=== PATIENT | male | born 1985 | race Caucasian/White ===

== ENCOUNTER 2022-08-11 19:51 | Inpatient (IN) | payer OTHER ==
[2022-08-11] MEDS ORDERED: LORazepam 2 MG/ML INJ IV STA ×3 (20:35→23:32)
[2022-08-11] MEDS ORDERED: SODIUM CHLORIDE 0.9% 1,000 ML with THIAMINE 100 MG, FOLIC ACID 1 MG IV ONE ×3 (20:39)
[2022-08-11] MEDS ORDERED: THIAMINE 100 MG/ML 2 ML VIAL IVP STA (20:39)
--- NOTE | 2022-08-11 20:42 | ED ---
Alcohol HPI - General Chief Complaint: Alcohol Stated Complaint: Mental health Time Seen by Provider: 08/11/22 20:20 Source: EMS, RN notes reviewed Mode of arrival: EMS - History of Present Illness Initial Comments: This is a 37-year-old male sent over from [facility]. Patient states he's been there 5 days for alcohol abuse. Patient states his last drink was 6 days ago. Apparently the patient now has started hallucinating and is very anxious. Patient believes that he brought to kill him and have already killed his . Difficult to obtain any further information from the patient due to his current state of anxiety. MD Complaint: alcohol withdrawal Time Since Last Drink: 5 (Her patient who is a poor historian) -: days(s) Previous Visits for Alcohol Intoxication?: No Recent Trauma: No Associated Symptoms: diaphoresis Treatments Prior to Arrival: none Chronic Alcohol Use: Yes - Related Data Home Medications Medication Instructions Recorded Confirmed Acetaminophen [Tylenol 8 Hour] 650 mg PO Q4H PRN 08/11/22 08/11/22 Calcium/Magnesium/Zinc/Cierra D 1 tab PO TID PRN 08/11/22 08/11/22 Chlorpheniramine Maleate 4 mg PO Q4H PRN 08/11/22 08/11/22 [Chlor-Trimeton] Docusate [Colace] 100 mg PO BID PRN 08/11/22 08/11/22 Hyoscyamine Sulfate [Levsin] 0.125 mg PO QID PRN 08/11/22 08/11/22 Ibuprofen [Motrin Ib] 600 mg PO Q6H PRN 08/11/22 08/11/22 LORazepam [Ativan] 1 - 2 mg PO Q4H 08/11/22 08/11/22 Loperamide HCl [Imodium A-D] 4 mg PO QID PRN 08/11/22 08/11/22 Mag Hydrox/Aluminum Hyd/Simeth 30 ml PO Q4H PRN 08/11/22 08/11/22 [Mylanta Maximum Strength Liq] Magnesium Hydroxide [Milk of 2,400 mg PO BID PRN 08/11/22 08/11/22 Magnesia] Omeprazole [PriLOSEC] 20 mg PO DAILY 08/11/22 08/11/22 Thiamine [Vitamin B-1] 100 mg PO DAILY 08/11/22 08/11/22 cloNIDine HCL [Catapres] 0.1 - 0.3 mg PO Q4H PRN 08/11/22 08/11/22 guaiFENesin [guaiFENesin Oral 200 mg PO Q4H PRN 08/11/22 08/11/22 Solution] ondansetron HCL [Ondansetron HCl] 8 mg PO Q6H PRN 08/11/22 08/11/22 traZODone HCL [Desyrel] 50 - 150 mg PO HS PRN 08/11/22 08/11/22 Allergies Allergy/AdvReac Type Severity Reaction Status Date / Time No Known Allergies Allergy Verified 08/11/22 20:03 Review of Systems ROS Statement: Those systems with pertinent positive or pertinent negative responses have been documented in the HPI. ROS Other: All systems not noted in ROS Statement are negative. Limitations: ROS unobtainable due to patients medical condition (Reliable review of systems is not available due to the patient's presenting) Past Medical History Past Medical History: Unable to Obtain, Sleep Apnea/CPAP/BIPAP History of Any Multi-Drug Resistant Organisms: None Reported Past Surgical History: Unable to Obtain Past Psychological History: No Psychological Hx Reported Past Alcohol Use History: Abuse, Daily General Exam - General Exam Comments Initial Comments: Agitated patient upon arrival. Nerves II through XII appear to be grossly intact. Patient diaphoretic, flight of ideas, pressured speech, notable tremor General appearance: alert, in no apparent distress, anxious, in distress Head exam: Present: atraumatic, normocephalic, normal inspection Eye exam: Present: normal appearance, PERRL, EOMI, nystagmus, other (Mydriatic). Absent: scleral icterus, conjunctival injection, periorbital swelling Pupils: Present: mydriatic ENT exam: Present: normal exam, normal oropharynx, mucous membranes dry, mucous membranes moist, normal external ear exam Neck exam: Present: normal inspection, full ROM. Absent: tenderness, meningismus, lymphadenopathy Respiratory exam: Present: normal lung sounds bilaterally. Absent: respiratory distress, wheezes, rales, rhonchi, stridor Cardiovascular Exam: Present: normal rhythm, tachycardia, normal heart sounds. Absent: systolic murmur, diastolic murmur, rubs, gallop, clicks GI/Abdominal exam: Present: soft, normal bowel sounds. Absent: distended, tenderness, guarding, rebound, rigid Extremities exam: Present: normal inspection, full ROM, normal capillary refill. Absent: tenderness, pedal edema, joint swelling, calf tenderness Back exam: Present: normal inspection Neurological exam: Present: alert, CN II-XII intact, other (Diffuse tremor noted) Psychiatric exam: Present: agitated, anxious Skin exam: Present: warm, intact, normal color, diaphoretic. Absent: dry, rash, erythema, urticaria, vesicles, petechiae, pallor, abrasion Course Vital Signs 08/11/22 08/11/22 08/11/22 20:00 22:00 23:00 Temperature 97.9 F Pulse Rate 63 108 H 109 H Respiratory 18 18 18 Rate Blood Pressure 179/122 148/98 145/98 O2 Sat by Pulse 96 99 95 Oximetry - Reevaluation(s) Reevaluation #1: 08/11/22 22:14 Patient came in and was having bouts of acute psychosis, suspect withdrawal syndrome. Patient required initially mechanical restraints and then was given Haldol 5 mg IM, lorazepam 2 mg IM, and diphenhydramine 50 mg IM. At 2214 patient was again agitated and required more medications. Repeat dose of lorazepam given. Reevaluation #2: 08/11/22 23:24 Patient reevaluated, appears to be neurologically intact. Patient still having some agitation but is somewhat more sedate. Phenobarbital infusion in process. - Consultations Consultation #1: Case discussed with the income tax investigator, Dr. Lee at 10:35 PM who except addition for the ICU. Will call the hospitalist physician. Dr. Lee agrees with the choice of phenobarbital for sedation Consultation #2: Case discussed in detail with the hospitalist physician Dr. Mejia who accepts the patient for admission. Medical Decision Making - Medical Decision Making 35 points Patients with scores ?20 frequently require medication for withdrawal, and may also require admission to the ICU for observation for seizures or development of delirium tremens, and more frequent medication dosing. Was pt. sent in by a medical professional or institution? @ -Sent by [facility] where the patient has been for 5 days Did you speak to anyone other than the patient for history? @ -EMS Did you review nursing and triage notes? @ -Concur, clinical situation consistent Were old charts reviewed? @ -Not available Differential Diagnosis? @ -To psychosis, metabolic encephalopathy, electrolyte disturbance, alcohol withdrawal, illicit substance intoxication. This is not an exhaustive list EKG interpreted by me (3pts min.)? @ -C EKG interpretation X-rays interpreted by me (1pt min.)? @ -[none] CT interpreted by me (1pt min.)? @ -[none] U/S interpreted by me (1pt. min.)? @ -[none] What testing was considered but not performed? (CT, X-rays, U/S, labs)? Why? @I did consider a computed tomography scan of the head as well as a chest x-ray. However patient appeared to be neurologically intact with no focal deficits. This was deferred pending for further treatment and evaluation. Chest x-ray deferred due to patient's agitation and presentation. We'll consider further. What meds were considered but not given? Why? @ -Other neuroleptic medication such as Geodon and Abilify were considered and held in favor of Haldol. Did you discuss the management of the patient with other professionals? @ -[professionals i.e. Dr, PA, SALES ESTIMATOR, Lab, RT, Psych Nurse, Race Starter, Printer Slotter Operator, Teacher, Optical Engineering Technician, insurance case manager? Give summary] Did you reconcile home meds? @ -[none] Was smoking cessation discussed for >3mins.? @ -[none] Was critical care preformed (if so, how long)? @ -30 minutes for acute psychotic/delusional presentation possible withdrawal syndrome. ICU admission Were there social determinants of health that impacted care today? How? (Homelessness, low income, unemployed, alcoholism, drug addiction, transportation, low edu. Level, literacy, decrease access to med. care, longterm, rehab)? @ -Patient had [facility] and will require further rehabilitation treatment after admission. Was there de-escalation of care discussed even if they declined? (Discuss DNR or withdrawal of care, Hospice)? @ -[Discuss DNR or withdrawal of care, Hospice?] What co-morbidities impacted this encounter? (DM, HTN, Smoking, COPD, CAD, Cancer, CVA, Hep., AIDS, mental health diagnosis, sleep apnea, morbid obesity)? @ -Hypertensive urgency upon presentation Was patient admitted / discharged? @ -Required both mechanical and chemical restraints in the emergency department. Undiagnosed new problem with uncertain prognosis? @ -Yes, probable withdrawal syndrome Drug Therapy requiring intensive monitoring for toxicity (Heparin, Nitro, Insulin, Cardizem)? @ -Lorazepam Were any procedures done? @ -[none] Diagnosis/symptom? @ -Acute withdrawal syndrome with delirium Acute, or Chronic, or Acute on Chronic? @ -Acute Uncomplicated (without systemic symptoms) or Complicated (systemic symptoms)? @ -Complicated Side effects of treatment? @ -Patient appears to be having a discordant reaction to lorazepam Exacerbation, Progression, or Severe Exacerbation] @ -[no] Poses a threat to life or bodily function? @ -Possible - Lab Data Result diagrams: 08/11/22 21:55 08/11/22 21:55 Lab Results 08/11/22 08/11/22 08/11/22 Range/Units 21:55 21:55 21:55 WBC 6.7 (3.8-10.6) k/uL RBC 4.12 L (4.30-5.90) m/uL Hgb 13.0 (13.0-17.5) gm/dL Hct 38.3 L (39.0-53.0) % MCV 93.0 (80.0-100.0) fL MCH 31.7 (25.0-35.0) pg MCHC 34.0 (31.0-37.0) g/dL RDW 12.9 (11.5-15.5) % Plt Count 151 (150-450) k/uL MPV 8.3 Neutrophils % 81 % Lymphocytes % 9 % Monocytes % 6 % Eosinophils % 1 % Basophils % 1 % Neutrophils # 5.5 (1.3-7.7) k/uL Lymphocytes # 0.6 L (1.0-4.8) k/uL Monocytes # 0.4 (0-1.0) k/uL Eosinophils # 0.0 (0-0.7) k/uL Basophils # 0.1 (0-0.2) k/uL PT 10.9 (9.0-12.0) sec INR 1.0 (<1.2) Sodium 137 (137-145) mmol/L Potassium 4.2 (3.5-5.1) mmol/L Chloride 101 (98-107) mmol/L Carbon Dioxide 23 (22-30) mmol/L Anion Gap 13 mmol/L BUN 10 (9-20) mg/dL Creatinine 0.94 (0.66-1.25) mg/dL Est GFR (CKD-EPI)AfAm >90 (>60 ml/min/1.73 sqM) Est GFR (CKD-EPI)NonAf >90 (>60 ml/min/1.73 sqM) Glucose 164 H (74-99) mg/dL Calcium 9.9 (8.4-10.2) mg/dL Phosphorus 4.1 (2.5-4.5) mg/dL Magnesium 1.7 (1.6-2.3) mg/dL Total Bilirubin 0.8 (0.2-1.3) mg/dL AST 113 H (17-59) U/L ALT 101 H (4-49) U/L Alkaline Phosphatase 67 (38-126) U/L Ammonia (<30) umol/L Troponin I (0.000-0.034) ng/mL Total Protein 7.9 (6.3-8.2) g/dL Albumin 4.8 (3.5-5.0) g/dL Lipase 150 (23-300) U/L Serum Alcohol <10 mg/dL 08/11/22 08/11/22 Range/Units 21:55 21:55 WBC (3.8-10.6) k/uL RBC (4.30-5.90) m/uL Hgb (13.0-17.5) gm/dL Hct (39.0-53.0) % MCV (80.0-100.0) fL MCH (25.0-35.0) pg MCHC (31.0-37.0) g/dL RDW (11.5-15.5) % Plt Count (150-450) k/uL MPV Neutrophils % % Lymphocytes % % Monocytes % % Eosinophils % % Basophils % % Neutrophils # (1.3-7.7) k/uL Lymphocytes # (1.0-4.8) k/uL Monocytes # (0-1.0) k/uL Eosinophils # (0-0.7) k/uL Basophils # (0-0.2) k/uL PT (9.0-12.0) sec INR (<1.2) Sodium (137-145) mmol/L Potassium (3.5-5.1) mmol/L Chloride (98-107) mmol/L Carbon Dioxide (22-30) mmol/L Anion Gap mmol/L BUN (9-20) mg/dL Creatinine (0.66-1.25) mg/dL Est GFR (CKD-EPI)AfAm (>60 ml/min/1.73 sqM) Est GFR (CKD-EPI)NonAf (>60 ml/min/1.73 sqM) Glucose (74-99) mg/dL Calcium (8.4-10.2) mg/dL Phosphorus (2.5-4.5) mg/dL Magnesium (1.6-2.3) mg/dL Total Bilirubin (0.2-1.3) mg/dL AST (17-59) U/L ALT (4-49) U/L Alkaline Phosphatase (38-126) U/L Ammonia 21 (<30) umol/L Troponin I <0.012 (0.000-0.034) ng/mL Total Protein (6.3-8.2) g/dL Albumin (3.5-5.0) g/dL Lipase (23-300) U/L Serum Alcohol mg/dL - EKG Data -: EKG Interpreted by Me EKG Comments: EKG independently interpreted by me at 2155 reveals sinus rhythm with a rate of 93. Normal intervals. Normal axis. No acute ST or T-wave changes baseline artifact noted. No comparison study When compared to previous EKG there are: no significant change Critical Care Time Critical Care Time: Yes Total Critical Care Time: 30 Critical Care Time: ICU admission, agitation, acute withdrawal syndrome. Multiple re-evaluations and interventions Disposition Clinical Impression: Alcohol withdrawal delirium, acute, hyperactive, Acute psychosis, Hypertensive urgency Disposition: ADMITTED IP TO THIS HOSP Is patient prescribed a controlled substance at d/c from ED?: No Referrals: Nonstaff,Physician [Primary Care Provider] - 1-2 days Time of Disposition: 23:03 - Out of Hospital Transfer - Req. Specs Out of Hospital Transfer - Requested Specifics: Medical ICU (Case discussed with Dr. Lee)
[2022-08-11] MEDS ORDERED: diphenhydrAMINE 50 MG/ML 1 ML VIAL IM STA (20:49)
[2022-08-11] MEDS ORDERED: HALOPERIDOL LACTATE 5 MG/ML 1 ML VIAL IM ONE (20:50)
[2022-08-11] MEDS ORDERED: LORazepam 2 MG/ML INJ IM STA (20:51)
[2022-08-11 22:15] LABS: Basophils # (A) 0.1 k/uL (0-0.2); Basophils % (A) 1 %; Eosinophils % (A) 1 %; HCT 38.3 % (39.0-53.0); Lymphocytes # (A) 0.6 k/uL (1.0-4.8); Lymphocytes % (A) 9 %; MCH 31.7 pg (25.0-35.0); Mean Platelet Volume 8.3; Monocytes # (A) 0.4 k/uL (0-1.0); Monocytes % (A) 6 %; Neutrophils # (A) 5.5 k/uL (1.3-7.7); Neutrophils % (A) 81 %; Platelet Count 151 k/uL (150-450); RBC 4.12 m/uL (4.30-5.90); RDW 12.9 % (11.5-15.5); WBC 6.7 k/uL (3.8-10.6)
[2022-08-11 22:20] LABS: ALT 101 U/L (4-49); AST 113 U/L (17-59); African American GFR (CKD) >90 (>60 ml/min/1.73 sqM); Albumin 4.8 g/dL (3.5-5.0); Alcohol <10 mg/dL; Alkaline Phosphatase 67 U/L (38-126); Anion Gap 13 mmol/L; Blood Urea Nitrogen 10 mg/dL (9-20); Calcium 9.9 mg/dL (8.4-10.2); Carbon Dioxide 23 mmol/L (22-30); Chloride 101 mmol/L (98-107); Glucose 164 mg/dL (74-99); Lipase 150 U/L (23-300); Magnesium 1.7 mg/dL (1.6-2.3); Non-African American GFR(CKD) >90 (>60 ml/min/1.73 sqM); Phosphorus 4.1 mg/dL (2.5-4.5); Potassium 4.2 mmol/L (3.5-5.1); Sodium 137 mmol/L (137-145); Total Bilirubin 0.8 mg/dL (0.2-1.3); Total Protein 7.9 g/dL (6.3-8.2)
[2022-08-11] MEDS ORDERED: KETAMINE HCL IN 0.9 % NACL 50 MG/5 ML SYRINGE IV ONE (22:27)
[2022-08-11] MEDS ORDERED: PHENobarbital SODIUM 130 MG/ML 1 ML VIAL IV ONE ×2 (22:31→22:45)
[2022-08-11 22:34] LABS: Prothrombin Time 10.9 sec (9.0-12.0)
[2022-08-11] MEDS ORDERED: NALOXONE 0.4 MG/ML 1 ML VIAL IV PRN (22:48)
[2022-08-11] MEDS: LORazepam 2 MG/ML INJ IV PRN ×2 (22:58→23:06)
[2022-08-12] MEDS ORDERED: HEPARIN SODIUM,PORCINE/PF 5,000 UNIT/0.5 ML SYRINGE SQ SCH
[2022-08-12] MEDS ORDERED: LORazepam 2 MG/ML INJ IV STA (00:26)
[2022-08-12 00:32] LABS: Appearance,Urine Clear (Clear); Bilirubin,Urine Negative (Negative); Blood,Urine Negative (Negative); Color,Urine Colorless; Glucose,Urine (UA) Negative (Negative); Ketones,Urine 1+ (Negative); Leukocyte Esterase,Urine Negative (Negative); Nitrite,Urine Negative (Negative); Protein,Urine Negative (Negative); Specific Gravity,Urine 1.007 (1.001-1.035); Urobilinogen,Urine <2.0 mg/dL (<2.0)
[2022-08-12 00:36] LABS: Amphetamine Screen,Urine Not Detected (NotDetected); Barbiturate Screen,Urine Not Detected (NotDetected); Benzodiazepines Screen,Urine Detected (NotDetected); Cocaine Screen,Urine Detected (NotDetected); Methadone Screen, Urine Not Detected (NotDetected); Opiate Screen,Urine Not Detected (NotDetected); Oxycodone Screen, Urine Not Detected (NotDetected); Phencyclidine Screen,Urine Not Detected (NotDetected); Tricyclic Antidepressant,Urine Not Detected (NotDetected); Urn Cannabinoid Scrn Not Detected (NotDetected)
[2022-08-12 01:27] LABS: Glucose,Whole Blood 120 mg/dL (70-110)
[2022-08-12] MEDS: DEXMEDETOMIDINE/0.9% NACL(PMX) 400 MCG in EMPTY BAG 1 BAG IV SCH ×3 (02:14→08:29)
--- NOTE | 2022-08-12 02:21 | P.HPIM ---
History of Present Illness H&P Date: 08/11/22 Chief Complaint: alcohol withdrawal 37 year old male with alcohol dependance patient [facility] due to severe alcohol withdrawal symptoms with hallucinations agitations. patient unable to provide any meaningful history at this time . he is in 4 point restraints , screaming , agitated. patient was given multiple doses of ativan, benadryl. and was given haldol in the ED. then he was switched to phenobarbital. patient is not intubated upon my evaluation , patient still very agitated, screaming, tachycardia , resisting care, hallucinating despite above measures. I discussed with ICU attending intubation and starting propofol drip. however, ICU suggested to try precedex first. labs reviewed shows slightly elevated AST/ALT. cocaine positive in urine reportedly last drink was 5 days ago Review of Systems ROS unobtainable: due to mental status Past Medical History Past Medical History: Unable to Obtain, Sleep Apnea/CPAP/BIPAP History of Any Multi-Drug Resistant Organisms: None Reported Past Surgical History: Unable to Obtain Past Psychological History: No Psychological Hx Reported Past Alcohol Use History: Abuse, Daily - Past Family History family Family Medical History: Unable to Obtain Medications and Allergies Home Medications Medication Instructions Recorded Confirmed Type Acetaminophen [Tylenol 8 Hour] 650 mg PO Q4H PRN 08/11/22 08/11/22 History Calcium/Magnesium/Zinc/Cierra D 1 tab PO TID PRN 08/11/22 08/11/22 History Chlorpheniramine Maleate 4 mg PO Q4H PRN 08/11/22 08/11/22 History [Chlor-Trimeton] Docusate [Colace] 100 mg PO BID PRN 08/11/22 08/11/22 History Hyoscyamine Sulfate [Levsin] 0.125 mg PO QID PRN 08/11/22 08/11/22 History Ibuprofen [Motrin Ib] 600 mg PO Q6H PRN 08/11/22 08/11/22 History LORazepam [Ativan] 1 - 2 mg PO Q4H 08/11/22 08/11/22 History Loperamide HCl [Imodium A-D] 4 mg PO QID PRN 08/11/22 08/11/22 History Mag Hydrox/Aluminum Hyd/Simeth 30 ml PO Q4H PRN 08/11/22 08/11/22 History [Mylanta Maximum Strength Liq] Magnesium Hydroxide [Milk of 2,400 mg PO BID PRN 08/11/22 08/11/22 History Magnesia] Omeprazole [PriLOSEC] 20 mg PO DAILY 08/11/22 08/11/22 History Thiamine [Vitamin B-1] 100 mg PO DAILY 08/11/22 08/11/22 History cloNIDine HCL [Catapres] 0.1 - 0.3 mg PO Q4H PRN 08/11/22 08/11/22 History guaiFENesin [guaiFENesin Oral 200 mg PO Q4H PRN 08/11/22 08/11/22 History Solution] ondansetron HCL [Ondansetron HCl] 8 mg PO Q6H PRN 08/11/22 08/11/22 History traZODone HCL [Desyrel] 50 - 150 mg PO HS PRN 08/11/22 08/11/22 History Allergies Allergy/AdvReac Type Severity Reaction Status Date / Time No Known Allergies Allergy Verified 08/11/22 20:03 Physical Exam Vitals: Vital Signs Temp Pulse Resp BP BP Pulse Ox 08/11/22 23:00 109 H 18 145/98 95 08/11/22 22:20 22 119/55 94 L 08/11/22 22:00 108 H 18 148/98 99 08/11/22 20:00 97.9 F 63 18 179/122 96 Intake and Output 08/11/22 08/11/22 08/12/22 14:59 22:59 06:59 Other: Weight 84.822 kg Constitutional: agitated resisting care, profuse sweating Eyes: Anicteric sclerae, moist conjunctiva, Pupils equal round reactive to light ENMT: NC/AT Neck: no masses No thyromegaly Lungs: Clear to auscultation Clear to percussion Normal respiratory effort, no accessory muscle use Cardiovascular: Heart tachycardia No murmurs, gallops, or rubs No peripheral edema Abdominal: Soft Nontender, no guarding, rebound or rigidity Abdomen moving with respiration Normoactive bowel sounds No palpable mass No abdominal wall hernia noted Skin: Normal temperature, tone, texture, turgor Extremities: No digital cyanosis No clubbing Pedal pulses intact and symmetrical Radial pulses intact and symmetrical No calf tenderness Psychiatric: agitated, hallucinating, restless Neuro moving all 4 extremities, in 4 point restraints Results CBC & Chem 7: 08/11/22 21:55 08/11/22 21:55 Labs: Abnormal Lab Results - Last 24 Hours (Table) 08/11/22 08/11/22 08/12/22 Range/Units 21:55 21:55 00:01 RBC 4.12 L (4.30-5.90) m/uL Hct 38.3 L (39.0-53.0) % Lymphocytes # 0.6 L (1.0-4.8) k/uL Glucose 164 H (74-99) mg/dL POC Glucose (mg/dL) (70-110) mg/dL AST 113 H (17-59) U/L ALT 101 H (4-49) U/L Urine Ketones 1+ H (Negative) U Benzodiazepines Scrn Detected H (NotDetected) Urine Cocaine Screen Detected H (NotDetected) 08/12/22 Range/Units 01:26 RBC (4.30-5.90) m/uL Hct (39.0-53.0) % Lymphocytes # (1.0-4.8) k/uL Glucose (74-99) mg/dL POC Glucose (mg/dL) 120 H (70-110) mg/dL AST (17-59) U/L ALT (4-49) U/L Urine Ketones (Negative) U Benzodiazepines Scrn (NotDetected) Urine Cocaine Screen (NotDetected) Assessment and Plan Assessment: alcohol withdrawal delerium tremens (hallucinations, autonomic dysfunction seizure precautions in 4 point restrains IVF hydration with normal saline in the ED, patient given multiple doses of benzo , a dose of haldol and started on phenobarb. patient not intubated discussed with ICU attending intubation and starting propofol drip. however, ICU suggested to try precedex first. thiamine benzo per CIWA elevated liver enzymes secondary to alcohol abuse monitor liver function polysubstance abuse cocaine positive in urine full code DVT PPX mechanical
[2022-08-12] MEDS: LORazepam 2 MG/ML INJ IV PRN ×4 (03:44→23:49)
[2022-08-12 06:27] LABS: Basophils % (A) 1 %; Eosinophils # (A) 0.1 k/uL (0-0.7); Eosinophils % (A) 1 %; HCT 38.2 % (39.0-53.0); HGB 13.2 gm/dL (13.0-17.5); Lymphocytes # (A) 0.7 k/uL (1.0-4.8); Lymphocytes % (A) 8 %; MCHC 34.5 g/dL (31.0-37.0); MCV 95.9 fL (80.0-100.0); Mean Platelet Volume 8.7; Monocytes # (A) 0.5 k/uL (0-1.0); Monocytes % (A) 6 %; Neutrophils # (A) 7.2 k/uL (1.3-7.7); Neutrophils % (A) 83 %; Platelet Count 126 k/uL (150-450); RBC 3.98 m/uL (4.30-5.90); RDW 13.5 % (11.5-15.5); WBC 8.6 k/uL (3.8-10.6)
[2022-08-12 06:31] LABS: ALT 113 U/L (4-49); AST 153 U/L (17-59); African American GFR (CKD) >90 (>60 ml/min/1.73 sqM); Albumin 4.7 g/dL (3.5-5.0); Alkaline Phosphatase 55 U/L (38-126); Anion Gap 10 mmol/L; Blood Urea Nitrogen 7 mg/dL (9-20); Calcium 8.9 mg/dL (8.4-10.2); Carbon Dioxide 23 mmol/L (22-30); Chloride 105 mmol/L (98-107); Glucose 127 mg/dL (74-99); Magnesium 1.9 mg/dL (1.6-2.3); Non-African American GFR(CKD) >90 (>60 ml/min/1.73 sqM); Potassium 4.3 mmol/L (3.5-5.1); Sodium 138 mmol/L (137-145); Total Bilirubin 1.2 mg/dL (0.2-1.3); Total Protein 7.7 g/dL (6.3-8.2)
[2022-08-12 07:08] LABS: Creatine Kinase 2987 U/L (55-170)
[2022-08-12] MEDS: HEPARIN SODIUM,PORCINE/PF 5,000 UNIT/0.5 ML SYRINGE SQ SCH ×3 (08:29→23:41)
[2022-08-12] MEDS ORDERED: MULTIVITAMINS, THERA 1 EACH TAB PO SCH (09:00)
[2022-08-12] MEDS ORDERED: cloNIDine HCL 0.1 MG TAB PO PRN (09:19)
[2022-08-12 09:25] LABS: ABG Base Excess 0.5 mmol/L; ABG HCO3 26 mmol/L (21-25); ABG Oxygen Saturation 98.6 % (94-97); ABG PCO2 44 mmHg (35-45); ABG PH 7.38 (7.35-7.45); ABG PO2 101 mmHg (83-108); ABG TCO2 27 mmol/L (19-24); Allen Test Performed? Yes
[2022-08-12] MEDS: THIAMINE 100 MG TAB PO SCH (09:30)
[2022-08-12] MEDS: MULTIVITAMINS, THERA 1 EACH TAB PO SCH (09:30)
[2022-08-12] MEDS: FOLIC ACID 1 MG TAB PO SCH (09:30)
--- NOTE | 2022-08-12 09:44 | P.PN ---
Subjective Progress Note Date: 08/12/22 Patient seems to be deeply sedated, arousable to painful stimulus only. Has been receiving Precedex at 1.4, down titrated to 1. Also receiving Ativan pushes overnight. Still remains in 4 point restraints Gen: awake, alert HEENT: normocephalic, atraumatic, good hearing acuity, moist mucous membranes Resp: good air exchange, breathing comfortably with no accessory muscle use, clear to auscultation bilaterally CVS: good distal perfusion x 4, regular rate and rhythm, no murmurs GI: soft, NTTP, ND : no SPT, no CVAT, luis catheter is present MSK: no pitting edema, no clubbing Neuro: non-focal, moving all extremities Psych: cooperative, euthymic mood Assessment/plan: #Alcohol withdrawal syndrome with alcohol dependence #Delerium tremens (hallucinations, autonomic dysfunction #Hypertensive urgency Case discussed with nursing at bedside in 4 point restrains, remove restraints today, apply soft 2 point restraints IVF hydration with normal saline to be continued Down titrate Precedex, wean off if able ABG today to ensure no CO2 narcosis from over-sedation thiamine, added folate, multivitamin benzo per CIWA #Elevated liver enzymes secondary to alcohol abuse monitor liver function #Polysubstance abuse cocaine positive in urine full code DVT PPX mechanical Objective - Vital Signs Vital signs: Vital Signs Temp 98.9 F 08/12/22 08:00 Pulse 72 08/12/22 09:00 Resp 23 08/12/22 09:00 BP 158/114 08/12/22 09:00 Pulse Ox 97 08/12/22 09:00 FiO2 Intake & Output 08/11/22 08/12/22 08/12/22 18:59 06:59 18:59 Intake Total 183.834 109.131 Output Total 2350 500 Balance -2166.166 -390.869 Weight 86 kg Intake: IV 100 40 0.9 NS 100 40 Intake, IV Titration 83.834 69.131 Amount Dexmedetomidine/0.9% NaCl 83.834 69.131 (Pmx) 400 mcg In Empty Bag 1 bag @ 0.2 MCG/KG/HR 4.241 mls/hr IV .[id number] VIN Rx#:[id number] Output: Urine 2350 500 Other: Voiding Method Indwelling Catheter - Labs CBC & Chem 7: 08/12/22 05:53 08/12/22 05:53 Labs: Abnormal Lab Results - Last 24 Hours (Table) 08/11/22 08/11/22 08/12/22 Range/Units 21:55 21:55 00:01 RBC 4.12 L (4.30-5.90) m/uL Hct 38.3 L (39.0-53.0) % Plt Count (150-450) k/uL Lymphocytes # 0.6 L (1.0-4.8) k/uL ABG HCO3 (21-25) mmol/L ABG Total CO2 (19-24) mmol/L ABG O2 Saturation (94-97) % BUN (9-20) mg/dL Glucose 164 H (74-99) mg/dL POC Glucose (mg/dL) (70-110) mg/dL AST 113 H (17-59) U/L ALT 101 H (4-49) U/L Creatine Kinase (55-170) U/L Urine Ketones 1+ H (Negative) U Benzodiazepines Scrn Detected H (NotDetected) Urine Cocaine Screen Detected H (NotDetected) 08/12/22 08/12/22 08/12/22 Range/Units 01: 05:53 05:53 RBC 3.98 L (4.30-5.90) m/uL Hct 38.2 L (39.0-53.0) % Plt Count 126 L (150-450) k/uL Lymphocytes # 0.7 L (1.0-4.8) k/uL ABG HCO3 (21-25) mmol/L ABG Total CO2 (19-24) mmol/L ABG O2 Saturation (94-97) % BUN 7 L (9-20) mg/dL Glucose 127 H (74-99) mg/dL POC Glucose (mg/dL) 120 H (70-110) mg/dL AST 153 H (17-59) U/L ALT 113 H (4-49) U/L Creatine Kinase 2987 H* (55-170) U/L Urine Ketones (Negative) U Benzodiazepines Scrn (NotDetected) Urine Cocaine Screen (NotDetected) 08/12/22 Range/Units 09:23 RBC (4.30-5.90) m/uL Hct (39.0-53.0) % Plt Count (150-450) k/uL Lymphocytes # (1.0-4.8) k/uL ABG HCO3 26 H (21-25) mmol/L ABG Total CO2 27 H (19-24) mmol/L ABG O2 Saturation 98.6 H (94-97) % BUN (9-20) mg/dL Glucose (74-99) mg/dL POC Glucose (mg/dL) (70-110) mg/dL AST (17-59) U/L ALT (4-49) U/L Creatine Kinase (55-170) U/L Urine Ketones (Negative) U Benzodiazepines Scrn (NotDetected) Urine Cocaine Screen (NotDetected)
[2022-08-12] MEDS: SODIUM CHLORIDE 0.9% 1,000 ML IV SCH (13:21)
--- NOTE | 2022-08-12 14:19 | P.CNPUL ---
History of Present Illness Consult date: 08/12/22 Requesting physician: Renzo Mejia Reason for consult: other ( acute alcohol withdrawal requiring ICU management) Chief complaint: alcohol withdrawal symptoms including hallucinations and agitation History of present illness: this is a 37-year-old white male with history of alcohol dependence, patient was [facility] because of severe alcohol withdrawal symptoms and hallucinations associated with agitations. Patient was brought in, required 4 point restraints, he was screaming agitated, did not improve with multiple doses of Ativan and Haldol. He was also given phenobarbital. And the patient was placed on Precedex drip, admitted to the ICU, and I was asked to see him on consultation this morning. Patient seems to be very well sedated with Precedex drip, doing well, and in no distress. His Precedex is 1 mcg/kg per hour. ABG showed a pO2 of 101 pCO2 44 pH of 7.3. CBC is unremarkable. Basic metabolic profile is unremarkable, CPK is elevated at 2987, drug screen is positive for benzodiazepines and cocaine Review of Systems ROS unobtainable: due to mental status ( patient is not cooperative.) Past Medical History Past Medical History: Hypertension, Sleep Apnea/CPAP/BIPAP Additional Past Medical History / Comment(s): Two to three pints of vodka per day and occasional beers daily. History of Any Multi-Drug Resistant Organisms: None Reported Past Surgical History: Joint Replacement, Orthopedic Surgery Additional Past Surgical History / Comment(s): bilateral hip replacement, right hip sx from fall. Past Anesthesia/Blood Transfusion Reactions: No Reported Reaction Smoking Status: Never smoker - Past Family History family Family Medical History: Unable to Obtain Medications and Allergies Home Medications Medication Instructions Recorded Confirmed Type Acetaminophen [Tylenol 8 Hour] 650 mg PO Q4H PRN 08/11/22 08/11/22 History Calcium/Magnesium/Zinc/Cierra D 1 tab PO TID PRN 08/11/22 08/11/22 History Chlorpheniramine Maleate 4 mg PO Q4H PRN 08/11/22 08/11/22 History [Chlor-Trimeton] Docusate [Colace] 100 mg PO BID PRN 08/11/22 08/11/22 History Hyoscyamine Sulfate [Levsin] 0.125 mg PO QID PRN 08/11/22 08/11/22 History Ibuprofen [Motrin Ib] 600 mg PO Q6H PRN 08/11/22 08/11/22 History LORazepam [Ativan] 1 - 2 mg PO Q4H 08/11/22 08/11/22 History Loperamide HCl [Imodium A-D] 4 mg PO QID PRN 08/11/22 08/11/22 History Mag Hydrox/Aluminum Hyd/Simeth 30 ml PO Q4H PRN 08/11/22 08/11/22 History [Mylanta Maximum Strength Liq] Magnesium Hydroxide [Milk of 2,400 mg PO BID PRN 08/11/22 08/11/22 History Magnesia] Omeprazole [PriLOSEC] 20 mg PO DAILY 08/11/22 08/11/22 History Thiamine [Vitamin B-1] 100 mg PO DAILY 08/11/22 08/11/22 History cloNIDine HCL [Catapres] 0.1 - 0.3 mg PO Q4H PRN 08/11/22 08/11/22 History guaiFENesin [guaiFENesin Oral 200 mg PO Q4H PRN 08/11/22 08/11/22 History Solution] ondansetron HCL [Ondansetron HCl] 8 mg PO Q6H PRN 08/11/22 08/11/22 History traZODone HCL [Desyrel] 50 - 150 mg PO HS PRN 08/11/22 08/11/22 History Allergies Allergy/AdvReac Type Severity Reaction Status Date / Time No Known Allergies Allergy Verified 08/11/22 20:03 Physical Exam Vitals: Vital Signs Temp Pulse Resp BP BP Pulse Ox 08/12/22 09:00 72 23 158/114 97 08/12/22 08:45 94 L 08/12/22 08:00 98.9 F 74 29 H 151/107 97 08/12/22 07:00 78 25 H 151/107 94 L 08/12/22 06:00 71 24 150/112 97 08/12/22 05:00 71 25 H 154/111 97 08/12/22 04:00 97.8 F 87 69 H 144/101 98 08/12/22 03:30 72 H 124/89 97 08/12/22 03:00 73 21 123/86 95 08/12/22 02:30 71 23 117/76 97 08/12/22 02:00 73 24 117/76 96 08/12/22 01:30 97.4 F L 78 19 140/92 97 08/11/22 23:00 109 H 18 145/98 95 08/11/22 22:20 22 119/55 94 L 08/11/22 22:00 108 H 18 148/98 99 08/11/22 20:00 97.9 F 63 18 179/122 96 Intake and Output 08/11/22 08/12/22 08/12/22 22:59 06:59 14:59 Intake Total 183.834 129.131 Output Total 2350 850 Balance -2166.166 -720.869 Intake: IV 100 60 0.9 NS 100 60 Intake, IV Titration 83.834 69.131 Amount Dexmedetomidine/0.9% NaCl 83.834 69.131 (Pmx) 400 mcg In Empty Bag 1 bag @ 0.2 MCG/KG/HR 4.241 mls/hr IV .[id number] [facility] Rx#:[id number] Output: Urine 2350 850 Other: Voiding Method Indwelling Catheter Weight 84.822 kg 86 kg 86 kg Physical Exam: 37-year-old white male in no distress, on room air. HEENT:[Neck is supple.] [No neck masses.] [No thyromegaly.] [No JVD.] Chest: [Clear throughout, no crackles, no rhonchi, no wheezes.] Cardiac Exam: [Normal S1 and S2, no S3 gallop, no murmur.] Abdomen: [Soft, nontender, no megaly, no rebound, no guarding, normal bowel sounds.] Extremities: [No clubbing, no edema, no cyanosis.] Neurological Exam: patient is not cooperative, he is sedated on Precedex. Psychiatric: Could not assess. Kin: No rashes Results - Laboratory Findings CBC and BMP: 08/12/22 05:53 08/12/22 05:53 ABG ABG pH 7.38 (7.35-7.45) 08/12/22 09:23 ABG pCO2 44 mmHg (35-45) 08/12/22 09:23 ABG pO2 101 mmHg (83-108) 08/12/22 09:23 ABG O2 Saturation 98.6 % (94-97) H 08/12/22 09:23 PT/INR, D-dimer PT 10.9 sec (9.0-12.0) 08/11/22 21:55 INR 1.0 (<1.2) 08/11/22 21:55 Abnormal lab findings: Abnormal Labs 08/11/22 08/11/22 08/12/22 21:55 21:55 00:01 RBC 4.12 L Hct 38.3 L Plt Count Lymphocytes # 0.6 L ABG HCO3 ABG Total CO2 ABG O2 Saturation BUN Glucose 164 H POC Glucose (mg/dL) AST 113 H ALT 101 H Creatine Kinase Urine Ketones 1+ H U Benzodiazepines Scrn Detected H Urine Cocaine Screen Detected H 08/12/22 08/12/22 08/12/22 01:26 05:53 05:53 RBC 3.98 L Hct 38.2 L Plt Count 126 L Lymphocytes # 0.7 L ABG HCO3 ABG Total CO2 ABG O2 Saturation BUN 7 L Glucose 127 H POC Glucose (mg/dL) 120 H AST 153 H ALT 113 H Creatine Kinase 2987 H* Urine Ketones U Benzodiazepines Scrn Urine Cocaine Screen 08/12/22 09:23 RBC Hct Plt Count Lymphocytes # ABG HCO3 26 H ABG Total CO2 27 H ABG O2 Saturation 98.6 H BUN Glucose POC Glucose (mg/dL) AST ALT Creatine Kinase Urine Ketones U Benzodiazepines Scrn Urine Cocaine Screen Assessment and Plan Assessment: Impression: acute alcohol withdrawal acute delirium tremens hypertensive urgency acute alcoholic hepatitis polysubstance abuse recommendation: Continue to monitor in the ICU continue hydration continue CIWA protocol soft restraints if necessary continue Precedex and titrate accordingly continue thiamine and folate as well as multivitamins GI and DVT prophylaxis will continue to follow Time with Patient: Greater than 30
[2022-08-13] MEDS: MELATONIN 5 MG TABLET PO PRN ×2 (00:05→22:21)
[2022-08-13] MEDS: SODIUM CHLORIDE 0.9% 1,000 ML IV SCH (02:00)
[2022-08-13 05:21] LABS: Basophils # (A) 0.1 k/uL (0-0.2); Basophils % (A) 1 %; Eosinophils # (A) 0.1 k/uL (0-0.7); Eosinophils % (A) 1 %; HCT 37.6 % (39.0-53.0); HGB 12.5 gm/dL (13.0-17.5); Lymphocytes # (A) 1.3 k/uL (1.0-4.8); Lymphocytes % (A) 13 %; MCH 31.9 pg (25.0-35.0); MCHC 33.4 g/dL (31.0-37.0); MCV 95.6 fL (80.0-100.0); Monocytes # (A) 0.6 k/uL (0-1.0); Monocytes % (A) 7 %; Neutrophils # (A) 7.4 k/uL (1.3-7.7); Neutrophils % (A) 76 %; Platelet Count 153 k/uL (150-450); RBC 3.93 m/uL (4.30-5.90); RDW 13.1 % (11.5-15.5); WBC 9.7 k/uL (3.8-10.6)
[2022-08-13 05:50] LABS: African American GFR (CKD) >90 (>60 ml/min/1.73 sqM); Anion Gap 10 mmol/L; Blood Urea Nitrogen 8 mg/dL (9-20); Calcium 8.6 mg/dL (8.4-10.2); Carbon Dioxide 25 mmol/L (22-30); Chloride 100 mmol/L (98-107); Glucose 82 mg/dL (74-99); Magnesium 2.1 mg/dL (1.6-2.3); Non-African American GFR(CKD) >90 (>60 ml/min/1.73 sqM); Potassium 3.7 mmol/L (3.5-5.1); Sodium 135 mmol/L (137-145)
[2022-08-13] MEDS ORDERED: Potassium Replacement Protocol 1 EACH MISC MISCELLANE PRN (06:15)
[2022-08-13] MEDS ORDERED: POTASSIUM CHLORIDE ER 20 MEQ TAB.ER PO SCH (07:00)
--- NOTE | 2022-08-13 10:26 | P.PN ---
Subjective Progress Note Date: 08/13/22 Discussed case with nursing at bedside. Pt is now awake, alert, still confused at bedside on evaluation. Has luis catheter and peripheral IV. Rec'd ativan overnight for agitation. Tried to leave AMA, but was talked down. Will need psych eval and possible petition if he tries to leave AMA again. Precedex is now off. Pt is now on room air. No complaints of pain. Gen: awake, alert HEENT: normocephalic, atraumatic, good hearing acuity, moist mucous membranes Resp: good air exchange, breathing comfortably with no accessory muscle use, clear to auscultation bilaterally CVS: good distal perfusion x 4, regular rate and rhythm, no murmurs GI: soft, NTTP, ND : no SPT, no CVAT, luis catheter is present MSK: no pitting edema, no clubbing Neuro: non-focal, moving all extremities Psych: cooperative, euthymic mood Assessment/plan: #Alcohol withdrawal syndrome with alcohol dependence #Delerium tremens (hallucinations, autonomic dysfunction #Hypertensive urgency Case discussed with nursing at bedside No restraints required overnight and today IVF hydration can be switched to KVO, PO intake as tolerated Ativan PRN to continue, no further precedex requirement ABG yesterday reviewed, no CO2 narcosis. Labs today stable. thiamine, added folate, multivitamin #Elevated liver enzymes secondary to alcohol abuse monitor liver function #Polysubstance abuse cocaine positive in urine full code DVT PPX mechanical Objective - Vital Signs Vital signs: Vital Signs Temp 97.7 F 08/13/22 08:00 Pulse 100 08/13/22 09:00 Resp 20 08/13/22 08:00 BP 128/84 08/13/22 10:00 Pulse Ox 95 08/13/22 09:00 FiO2 Intake & Output 08/12/22 08/13/22 08/13/22 18:59 06:59 18:59 Intake Total 067.139 4908 300 Output Total 1400 1510 750 Balance -783.302 830 -450 Weight 86 kg 82.6 kg Intake: IV 520 900 300 0.9 NS 70 Sodium Chloride 0.9% 1, 450 900 300 000 ml @ 75 mls/hr IV . [id number] [facility] Rx#:[id number] Intake, IV Titration 96.698 Amount Dexmedetomidine/0.9% NaCl 96.698 (Pmx) 400 mcg In Empty Bag 1 bag @ 0.2 MCG/KG/HR 4.241 mls/hr IV .[id number] [facility] Rx#:[id number] Oral 1440 Output: Urine 1400 1510 750 Other: Voiding Method Indwelling Catheter Indwelling Catheter - Labs CBC & Chem 7: 08/13/22 04:44 08/13/22 04:44 Labs: Abnormal Lab Results - Last 24 Hours (Table) 08/13/22 08/13/22 Range/Units 04:44 04:44 RBC 3.93 L (4.30-5.90) m/uL Hgb 12.5 L (13.0-17.5) gm/dL Hct 37.6 L (39.0-53.0) % Sodium 135 L (137-145) mmol/L BUN 8 L (9-20) mg/dL
[2022-08-13] MEDS: FOLIC ACID 1 MG TAB PO SCH (10:40)
[2022-08-13] MEDS: MULTIVITAMINS, THERA 1 EACH TAB PO SCH (10:40)
[2022-08-13] MEDS: THIAMINE 100 MG TAB PO SCH (10:40)
[2022-08-13] MEDS: HEPARIN SODIUM,PORCINE/PF 5,000 UNIT/0.5 ML SYRINGE SQ SCH ×2 (10:41→16:49)
[2022-08-13] MEDS: LORazepam 2 MG/ML INJ IV PRN ×3 (10:45→19:49)
--- NOTE | 2022-08-13 11:31 | P.PN ---
Subjective Progress Note Date: 08/13/22 Principal diagnosis: Acute alcohol withdrawal this is a 37-year-old white male with history of alcohol dependence, patient was sent from [facility] yesterday because of severe alcohol withdrawal symptoms and hallucinations associated with agitations. Patient was brought in, required 4 point restraints, he was screaming agitated, did not improve with multiple doses of Ativan and Haldol. He was also given phenobarbital. And the patient was placed on Precedex drip, admitted to the ICU, and I was asked to see him on consultation this morning. Patient seems to be very well sedated with Precedex drip, doing well, and in no distress. His Precedex is 1 mcg/kg per h our. ABG showed a pO2 of 101 pCO2 44 pH of 7.3. CBC is unremarkable. Basic metabolic profile is unremarkable, CPK is elevated at 2987, drug screen is positive for benzodiazepines and cocaine Reevaluated today on 08/13/22, patient remains in the ICU, he is to be very comfortable, he is still on the CIWA protocol, off Precedex. Not much of a problem over the last 24 hours, hence I plan to transfer the patient out of the ICU to regular medical floor. Labs today are basically unremarkable. Objective - Vital Signs Vital signs: Vital Signs Temp 97.7 F 08/13/22 08:00 Pulse 100 08/13/22 09:00 Resp 20 08/13/22 08:00 BP 128/84 08/13/22 10:00 Pulse Ox 95 08/13/22 09:00 FiO2 Intake & Output 08/12/22 08/13/22 08/13/22 18:59 06:59 18:59 Intake Total 318.154 6907 300 Output Total 1400 1510 750 Balance -783.302 830 -450 Weight 86 kg 82.6 kg Intake: IV 520 900 300 0.9 NS 70 Sodium Chloride 0.9% 1, 450 900 300 000 ml @ 75 mls/hr IV . [id number] [facility] Rx#:[id number] Intake, IV Titration 96.698 Amount Dexmedetomidine/0.9% NaCl 96.698 (Pmx) 400 mcg In Empty Bag 1 bag @ 0.2 MCG/KG/HR 4.241 mls/hr IV .[id number] [facility] Rx#:[id number] Oral 1440 Output: Urine 1400 1510 750 Other: Voiding Method Indwelling Catheter Indwelling Catheter - Exam Physical Exam: 37-year-old white male in no distress, on room air. HEENT:[Neck is supple.] [No neck masses.] [No thyromegaly.] [No JVD.] Chest: [Clear throughout, no crackles, no rhonchi, no wheezes.] Cardiac Exam: [Normal S1 and S2, no S3 gallop, no murmur.] Abdomen: [Soft, nontender, no megaly, no rebound, no guarding, normal bowel sounds.] Extremities: [No clubbing, no edema, no cyanosis.] Neurological Exam: Alert and oriented 3, no gross focal deficits. Psychiatric: Normal mood, affect normal mental status examination SKin: No rashes - Labs CBC & Chem 7: 08/13/22 04:44 08/13/22 04:44 Labs: Abnormal Lab Results - Last 24 Hours (Table) 08/13/22 08/13/22 Range/Units 04:44 04:44 RBC 3.93 L (4.30-5.90) m/uL Hgb 12.5 L (13.0-17.5) gm/dL Hct 37.6 L (39.0-53.0) % Sodium 135 L (137-145) mmol/L BUN 8 L (9-20) mg/dL Assessment and Plan Assessment: Impression: acute alcohol withdrawal acute delirium tremens hypertensive urgency acute alcoholic hepatitis polysubstance abuse recommendation: Considering the patient is off the Precedex drip and well-controlled with the CIWA protocol, will transfer the patient out of the ICU to regular medical floor. continue CIWA protocol soft restraints if necessary continue thiamine and folate as well as multivitamins GI and DVT prophylaxis will continue to follow Time with Patient: Less than 30
[2022-08-13] MEDS: PANTOPRAZOLE 40 MG TABLET PO SCH (15:16)
[2022-08-13] MEDS: LORATADINE 10 MG TAB PO SCH (15:16)
[2022-08-14] MEDS: HEPARIN SODIUM,PORCINE/PF 5,000 UNIT/0.5 ML SYRINGE SQ SCH ×2 (00:19→08:05)
[2022-08-14 06:27] LABS: Basophils # (A) 0.1 k/uL (0-0.2); Basophils % (A) 1 %; Eosinophils # (A) 0.1 k/uL (0-0.7); Eosinophils % (A) 1 %; HCT 39.7 % (39.0-53.0); HGB 13.4 gm/dL (13.0-17.5); Lymphocytes # (A) 1.2 k/uL (1.0-4.8); Lymphocytes % (A) 12 %; MCH 32.2 pg (25.0-35.0); MCHC 33.7 g/dL (31.0-37.0); MCV 95.4 fL (80.0-100.0); Monocytes # (A) 0.7 k/uL (0-1.0); Monocytes % (A) 7 %; Neutrophils # (A) 7.4 k/uL (1.3-7.7); Neutrophils % (A) 77 %; Platelet Count 207 k/uL (150-450); RBC 4.16 m/uL (4.30-5.90); WBC 9.6 k/uL (3.8-10.6)
[2022-08-14 06:43] LABS: African American GFR (CKD) >90 (>60 ml/min/1.73 sqM); Anion Gap 10 mmol/L; Blood Urea Nitrogen 8 mg/dL (9-20); Calcium 9.1 mg/dL (8.4-10.2); Carbon Dioxide 24 mmol/L (22-30); Chloride 103 mmol/L (98-107); Glucose 93 mg/dL (74-99); Magnesium 2.2 mg/dL (1.6-2.3); Non-African American GFR(CKD) >90 (>60 ml/min/1.73 sqM); Sodium 137 mmol/L (137-145)
[2022-08-14] MEDS: LORATADINE 10 MG TAB PO SCH (08:05)
[2022-08-14] MEDS: MULTIVITAMINS, THERA 1 EACH TAB PO SCH (08:05)
[2022-08-14] MEDS: FOLIC ACID 1 MG TAB PO SCH (08:05)
[2022-08-14] MEDS: THIAMINE 100 MG TAB PO SCH (08:05)
[2022-08-14] MEDS: PANTOPRAZOLE 40 MG TABLET PO SCH (08:05)
[2022-08-14] MEDS: LORazepam 2 MG/ML INJ IV PRN (10:35)
--- NOTE | 2022-08-14 11:23 | P.PN ---
Subjective Progress Note Date: 08/14/22 Principal diagnosis: Acute alcohol withdrawal this is a 37-year-old white male with history of alcohol dependence, patient was sent from [facility] yesterday because of severe alcohol withdrawal symptoms and hallucinations associated with agitations. Patient was brought in, required 4 point restraints, he was screaming agitated, did not improve with multiple doses of Ativan and Haldol. He was also given phenobarbital. And the patient was placed on Precedex drip, admitted to the ICU, and I was asked to see him on consultation this morning. Patient seems to be very well sedated with Precedex drip, doing well, and in no distress. His Precedex is 1 mcg/kg per h our. ABG showed a pO2 of 101 pCO2 44 pH of 7.3. CBC is unremarkable. Basic metabolic profile is unremarkable, CPK is elevated at 2987, drug screen is positive for benzodiazepines and cocaine Reevaluated today on 08/13/22, patient remains in the ICU, he is to be very comfortable, he is still on the CIWA protocol, off Precedex. Not much of a problem over the last 24 hours, hence I plan to transfer the patient out of the ICU to regular medical floor. Labs today are basically unremarkable. Reevaluated today on 08/14/22, patient is still in the ICU as an overflow, doing well, asymptomatic, off Precedex, remains on the CIWA protocol, and he seemed to be in any distress. Planning conference of the patient out of the ICU once a bed becomes available. Objective - Vital Signs Vital signs: Vital Signs Temp 97.6 F 08/14/22 08:00 Pulse 96 08/14/22 08:00 Resp 23 08/14/22 08:00 BP 144/93 08/14/22 08:00 Pulse Ox 96 08/14/22 08:00 FiO2 Intake & Output 08/13/22 08/14/22 08/14/22 18:59 06:59 18:59 Intake Total 300 Output Total 750 Balance -450 Intake: IV 300 Sodium Chloride 0.9% 1, 300 000 ml @ 75 mls/hr IV . [id number] Rx#:[id number] Output: Urine 750 Other: Voiding Method Toilet Toilet Urinal Urinal # Voids 1 2 # Bowel Movements 1 - Exam Physical Exam: 37-year-old white male in no distress, on room air. HEENT:[Neck is supple.] [No neck masses.] [No thyromegaly.] [No JVD.] Chest: [Clear throughout, no crackles, no rhonchi, no wheezes.] Cardiac Exam: [Normal S1 and S2, no S3 gallop, no murmur.] Abdomen: [Soft, nontender, no megaly, no rebound, no guarding, normal bowel sounds.] Extremities: [No clubbing, no edema, no cyanosis.] Neurological Exam: Alert and oriented 3, no gross focal deficits. Psychiatric: Normal mood, affect normal mental status examination SKin: No rashes - Labs CBC & Chem 7: 08/14/22 05:26 08/14/22 05:26 Labs: Abnormal Lab Results - Last 24 Hours (Table) 08/14/22 08/14/22 Range/Units 05:26 05:26 RBC 4.16 L (4.30-5.90) m/uL BUN 8 L (9-20) mg/dL Assessment and Plan Assessment: Impression: acute alcohol withdrawal acute delirium tremens hypertensive urgency acute alcoholic hepatitis polysubstance abuse recommendation: consider transferring the patient out of the ICU once a bed is available on the floor. continue CIWA protocol possible discharge planning if cleared by all consultants continue thiamine and folate as well as multivitamins GI and DVT prophylaxis will continue to follow Time with Patient: Less than 30
--- NOTE | 2022-08-14 13:37 | P.DS ---
Providers Date of admission: 08/12/22 00:26 Expected date of discharge: 08/14/22 Attending physician: Renzo Mejia MD Consults: 08/11/22 22:49 Consult Physician Stat Consulting Provider: Larisa Lee Consult Reason/Comments: Acute withdrawal syndrome with delirium Do you want consulting provider notified?: Already Contacted Primary care physician: Physician Nonstaff Hospital Course: #Alcohol withdrawal syndrome with alcohol dependence #Delerium tremens (hallucinations, autonomic dysfunction #Hypertensive urgency #Elevated liver enzymes secondary to alcohol abuse #Polysubstance abuse 37 year old male with alcohol dependance presented from [facility] due to severe alcohol withdrawal symptoms with hallucinations agitations. In the emergency room, patient is afebrile, 179/122, heart rate 63, 96% on room air. CBC was unremarkable. Chemistries were unremarkable. Liver function tests showed elevation of AST to 153, elevation of L2 to 1 113. CK was elevated 2987. Case was discussed with emergency room physician and patient was admitted to the hospital for alcohol withdrawal syndrome. Patient was having severe agitati on issues and therefore ICU was consulted for transfer to the unit. Patient was placed on a Precedex drip and was given Ativan when necessary, by the following day was arousable to painful stimulus only. Sedation was quickly withdrawn, Precedex was completely weaned off. Patient was followed for an additional 2 nights and had minimal Ativan when necessary requirements. On day of discharge, [facility] was contacted by myself the discharging physician, who agreed to chicken picker patient and return him to residential rehab for alcohol abuse as well as cocaine abuse. I spent 32 minutes coordinating this discharge on 08/14 Gen: awake, alert HEENT: normocephalic, atraumatic, good hearing acuity, moist mucous membranes Resp: good air exchange, breathing comfortably with no accessory muscle use, clear to auscultation bilaterally CVS: good distal perfusion x 4, regular rate and rhythm, no murmurs GI: soft, NTTP, ND : no SPT, no CVAT, luis catheter is present MSK: no pitting edema, no clubbing Neuro: non-focal, moving all extremities Psych: cooperative, euthymic mood Patient Condition at Discharge: Good Plan - Discharge Summary Discharge Rx Participant: Yes New Discharge Prescriptions: New Folic Acid 1 mg PO DAILY #30 tab Multivitamins, Thera [Multivitamin (formulary)] 1 each PO DAILY #30 tab Continue Omeprazole [PriLOSEC] 20 mg PO DAILY Magnesium Hydroxide [Milk of Magnesia] 2,400 mg PO BID PRN PRN Reason: Constipation Ibuprofen [Motrin Ib] 600 mg PO Q6H PRN PRN Reason: Fever And/ Or Pain guaiFENesin [guaiFENesin Oral Solution] 200 mg PO Q4H PRN PRN Reason: Cough Hyoscyamine Sulfate [Levsin] 0.125 mg PO QID PRN PRN Reason: Gi Upset Calcium/Magnesium/Zinc/Cierra D 1 tab PO TID PRN PRN Reason: CRAMPING LORazepam [Ativan] 1 - 2 mg PO Q4H ondansetron HCL [Zofran] 8 mg PO Q6H PRN PRN Reason: Nausea And Vomiting traZODone HCL [Desyrel] 50 - 150 mg PO HS PRN PRN Reason: Insomnia Thiamine [Vitamin B-1] 100 mg PO DAILY Mag Hydrox/Aluminum Hyd/Simeth [Mylanta Maximum Strength Liq] 30 ml PO Q4H PRN PRN Reason: Gi Upset Acetaminophen [Tylenol 8 Hour] 650 mg PO Q4H PRN PRN Reason: Fever And/ Or Pain Loperamide HCl [Imodium A-D] 4 mg PO QID PRN PRN Reason: Loose Stool Docusate [Colace] 100 mg PO BID PRN PRN Reason: Constipation Chlorpheniramine Maleate [Chlor-Trimeton] 4 mg PO Q4H PRN PRN Reason: Allergy Symptoms cloNIDine HCL [Catapres] 0.1 - 0.3 mg PO Q4H PRN PRN Reason: BP>160/100 Discharge Medication List Acetaminophen [Tylenol 8 Hour] 650 mg PO Q4H PRN 08/11/22 [History] Calcium/Magnesium/Zinc/Cierra D 1 tab PO TID PRN 08/11/22 [History] Chlorpheniramine Maleate [Chlor-Trimeton] 4 mg PO Q4H PRN 08/11/22 [History] Docusate [Colace] 100 mg PO BID PRN 08/11/22 [History] Hyoscyamine Sulfate [Levsin] 0.125 mg PO QID PRN 08/11/22 [History] Ibuprofen [Motrin Ib] 600 mg PO Q6H PRN 08/11/22 [History] LORazepam [Ativan] 1 - 2 mg PO Q4H 08/11/22 [History] Loperamide HCl [Imodium A-D] 4 mg PO QID PRN 08/11/22 [History] Mag Hydrox/Aluminum Hyd/Simeth [Mylanta Maximum Strength Liq] 30 ml PO Q4H PRN 08/11/22 [History] Magnesium Hydroxide [Milk of Magnesia] 2,400 mg PO BID PRN 08/11/22 [History] Omeprazole [PriLOSEC] 20 mg PO DAILY 08/11/22 [History] Thiamine [Vitamin B-1] 100 mg PO DAILY 08/11/22 [History] cloNIDine HCL [Catapres] 0.1 - 0.3 mg PO Q4H PRN 08/11/22 [History] guaiFENesin [guaiFENesin Oral Solution] 200 mg PO Q4H PRN 08/11/22 [History] ondansetron HCL [Zofran] 8 mg PO Q6H PRN 08/11/22 [History] traZODone HCL [Desyrel] 50 - 150 mg PO HS PRN 08/11/22 [History] Folic Acid 1 mg PO DAILY #30 tab 08/14/22 [Rx] Multivitamins, Thera [Multivitamin (formulary)] 1 each PO DAILY #30 tab 08/14/22 [Rx] Follow up Appointment(s)/Referral(s): Nonstaff,Physician [Primary Care Provider] - 1-2 days Discharge Disposition: OTHER INSTITUTION NOT DEFINED
[2022-08-14 14:36] VITALS: BP 140/98; PULSE 102; RESP 19; TEMP 97.7
== END 2022-08-14 16:20 | disposition other institution (70) | DRG 896 ==
LOC: EC 19:51 → 2SICU 08-12 00:26
PROVIDERS: ADMIT Internal Medicine; ATTEND Internal Medicine
PROC: HZ2ZZZZ Detoxification Services for Substance Abuse Treatment (ICD-10-PCS; principal; 2022-08-12)
DX: F10.231 Alcohol dependence with withdrawal delirium (principal); G93.41 Metabolic encephalopathy; F23 Brief psychotic disorder; F41.9 Anxiety disorder, unspecified; K70.10 Alcoholic hepatitis without ascites; I16.0 Hypertensive urgency; I10 Essential (primary) hypertension; R74.01 Elevation of levels of liver transaminase levels; F15.10 Other stimulant abuse, uncomplicated; F14.10 Cocaine abuse, uncomplicated; G47.30 Sleep apnea, unspecified; Z71.41 Alcohol abuse counseling and surveillance of alcoholic; Z78.1 Physical restraint status; Z96.643 Presence of artificial hip joint, bilateral; Z71.51 Drug abuse counseling and surveillance of drug abuser
CPT/HCPCS: 36415; 36600; 80048; 80053; 80306; 80320; 81003; 82075; 82140; 82550; 82805; 83690; 83735; 84100; 84484; 85025; 85610; 93005; 94760; 96365; 96366; 96372; 96376; 99291